=== PATIENT | male | born 1990 | race Hispanic/Latino ===

== ENCOUNTER 2017-08-06 14:50 | Outpatient (CLI) | payer OTHER ==
--- NOTE | 2017-08-06 15:31 | XRay Report ---
XRAY RIGHT ANKLE THREE VIEWS: 08/06/17 14:50:00 CLINICAL: Right ankle pain. FINDINGS: The examination is performed with a posterior splint in place.No fracture or dislocation. Mild lateral soft tissue swelling. No soft tissue air or foreign body. IMPRESSION: Nonspecific soft tissue swelling with no bony abnormality identified.
== END 2017-08-06 14:51 | disposition home or self-care (01) ==
LOC: SPVIMAG 14:50
PROVIDERS: ATTEND Orthopaedic Surgery
DX: M25.571 Pain in right ankle and joints of right foot (principal); M79.89 Other specified soft tissue disorders